=== PATIENT | male | born 1965 | race Caucasian/White ===

== ENCOUNTER 2017-06-24 12:03 | Day surgery (SDC) | payer OTHER ==
[~2017-06-24] VITALS: Ht 175.3 cm; Wt 96.6 kg
[~2017-06-24 12:03] MED LIST: METFORMIN HCL500 M3 PO
--- NOTE | 2017-06-24 15:01 | NUR ---
06/24/17 1501 Ema Infante [id number] PATIENT ARRIVES TO PACU AWAKE, ALERT AND ORIENTED X3. ANSWERS QUESTIONS APPROPRIATELY. RESP EVEN AND UNLABORED. 97% ON ROOM AIR. DENIES PAIN OR NAUSEA. PASSING GAS WITHOUT DIFFICULTY.
--- NOTE | 2017-06-26 10:03 | OR ---
[facility] [address], [place] [address] Signed DATE OF OPERATION: 06/24/2017 SURGEON: Catracho Ramirez MD PREOPERATIVE DIAGNOSES: 1. Colon surveillance left colonoscopy 12 years ago. 2. Constipation. POSTOPERATIVE DIAGNOSIS: Sigmoid and left-sided diverticulosis (extensive). PROCEDURE: Total colonoscopy to cecum. ANESTHESIA: Intravenous sedation, fentanyl 100 mcg, Versed 6 mg. INDICATION: This 52-year-old white man is a patient of Dr. Amanda and has some complaints of constipation, but no blood per rectum. He last underwent colonoscopy approximately 12 years ago in the [facility]. He is uncertain if he had polyps, but he thinks he may have. He has no family history of colon cancer. He is admitted for colonoscopy on the basis of his constipation. He understands the risks of bleeding, infection, and perforation. FINDINGS: The prep was good. Complete colonoscopy was undertaken to the cecum. There were numerous diverticula of the sigmoid and left colon. There was no sign of neoplasm, polyp, or colitis. There were few internal hemorrhoids as well. DESCRIPTION OF PROCEDURE: The patient was brought to the endoscopy suite and placed in lateral decubitus position, given intravenous sedation to the point of slurred speech and nystagmus. Digital rectal examination was normal. An Olympus video colonoscope was passed in the rectum and manipulated throughout the colon, noting diverticular change of the sigmoid and left colon. Scope was advanced ultimately to the cecum, which appeared entirely normal. Ileocecal valve was normal as well. The scope was withdrawn from that point and examination throughout showed no sign of abnormality until the left colon. Once again, where numerous diverticula were seen Electronically Signed By: CATRACHO RAMIREZ MD 06/26/17 1003 PATIENT NAME: NOLAN BAI OPERATIVE REPORT DATE OF : 63 REPORT #: [id number] PHYSICIAN: CATRACHO RAMIREZ MD PCP: DANIEL AMANDA DO REPORT IS CONFIDENTIAL AND NOT TO BE RELEASED WITHOUT AUTHORIZATION [facility] [address], [place] [address] Signed including the sigmoid. The scope was further withdrawn to the rectum and retroflexed view was undertaken showing minimal hemorrhoidal change. The scope was removed. The patient was taken to recovery in good condition. CONCLUDING DIAGNOSIS: Most likely, constipation is related to diverticular disease. PLAN: Recommend high-fiber diet and/or Citrucel 1 tablespoon daily. If he has persistent constipation, I am happy to assist him in that management. He will return to the ongoing care of Dr. Amanda, otherwise. MD [place] Proctor/ALBERT /[id number] cc: Daniel Amanda DO Copies: DANIEL AMANDA DO ~ Electronically Signed By: CATRACHO RAMIREZ MD 06/26/17 1003 PATIENT NAME: NOLAN BAI OPERATIVE REPORT DATE OF : 63 REPORT #: [id number] PHYSICIAN: CATRACHO RAMIREZ MD PCP: DANIEL AMANDA DO REPORT IS CONFIDENTIAL AND NOT TO BE RELEASED WITHOUT AUTHORIZATION
== END 2017-06-24 15:30 | disposition home or self-care (01) ==
LOC: DS 12:03 → OPS 12:03 → DS 13:00 → OPS 15:30
PROVIDERS: Surgery
PROC: 0DJD8ZZ Inspection of Lower Intestinal Tract, Via Natural or Artificial Opening Endoscopic (ICD-10-PCS; principal; 2017-06-24 13:00)
DX: K59.09 Other constipation (principal); K57.30 Diverticulosis of large intestine without perforation or abscess without bleeding; K64.9 Unspecified hemorrhoids; E11.9 Type 2 diabetes mellitus without complications; Z88.2 Allergy status to sulfonamides; Z98.890 Other specified postprocedural states
CPT/HCPCS: 99153; G0500; J2250; J3010; J7120